=== PATIENT | female | born 1985 | race Caucasian/White ===

== ENCOUNTER 2017-09-24 01:53 | Emergency (ER) | payer OTHER, MEDICAID ==
[2017-09-24 03:23] LABS: AUTOMATED NEUTROPHIL # 7.3 TH/MM3 (1.8-7.7); BASOPHIL # 0.1 TH/MM3 (0-0.2); BASOPHIL % 0.6 % (0.0-2.0); EOSINOPHIL # 0.3 TH/MM3 (0-0.4); EOSINOPHIL % 2.9 % (0.0-4.0); HEMO FLAGS DIFF FINAL; HEMOGLOBIN 12.8 GM/DL (11.6-15.3); LYMPH % 22.3 % (9.0-44.0); LYMPHOCYTE # 2.5 TH/MM3 (1.0-4.8); MEAN CELL VOLUME 85.9 FL (80.0-100.0); MEAN CORPUSCULAR HEMOGLOBIN 28.9 PG (27.0-34.0); MEAN CORPUSCULAR HGB CONC 33.6 % (32.0-36.0); MEAN PLATELET VOLUME 8.5 FL (7.0-11.0); MONO % 9.5 % (0.0-8.0); MONOCYTE # 1.1 TH/MM3 (0-0.9); NEUT % 64.7 % (16.0-70.0); PLATELET COUNT 273 TH/MM3 (150-450); RED BLOOD COUNT 4.42 MIL/MM3 (4.00-5.30); RED CELL DISTRIBUTION WIDTH 13.8 % (11.6-17.2); WHITE BLOOD COUNT 11.3 TH/MM3 (4.0-11.0)
[2017-09-24 03:42] LABS: ALBUMIN 3.7 GM/DL (3.4-5.0); ALCOHOL 61 MG/DL (0-5); ALT (GPT) 52 U/L (10-53); ANION GAP 8 MEQ/L (5-15); AST (GOT) 93 U/L (15-37); BICARBONATE 27.3 MEQ/L (21.0-32.0); BLOOD UREA NITROGEN 14 MG/DL (7-18); CALCIUM 7.8 MG/DL (8.5-10.1); CHLORIDE 109 MEQ/L (98-107); CREATININE 0.59 MG/DL (0.50-1.00); GLOMERULAR FILTRATION RATE 120 ML/MIN (>89); GLUCOSE,RANDOM 82 MG/DL (74-106); POTASSIUM 3.6 MEQ/L (3.5-5.1); SODIUM (NA) 144 MEQ/L (136-145)
[2017-09-24 03:44] LABS: ALKALINE PHOSPHATASE 75 U/L (45-117); TOTAL BILIRUBIN ADULT 0.5 MG/DL (0.2-1.0); TOTAL PROTEIN 6.6 GM/DL (6.4-8.2)
[2017-09-24 04:48] LABS: AMORPHOUS SEDIMENT, URINE RARE; BACTERIA, URINE OCC /hpf; BILIRUBIN, URINE NEG (NEG); BLOOD, URINE LARGE (NEG); COMMENT (UR) CULTURE INDICATED; CULTURE IF INDICATED CULTURE INDICATED; GLUCOSE,URINE NEG (NEG); KETONE, URINE 10 mg/dL (NEG); MUCUS URINE FEW /lpf (OCC); NITRITE,URINE NEG (NEG); SQUAMOUS EPITHELIAL CELL URINE 1 /hpf (0-5); URINE LEUKOCYTE ESTERASE TRACE (NEG)
[2017-09-24 04:49] LABS: URINE COLOR LIGHT-RED (YELLW/STRAW)
[2017-09-24 04:55] LABS: AMPHETAMINE, URINE POS (NEG); BARBITURATES, URINE NEG (NEG); BENZODIAZEPINE,URINE POS (NEG); CANNABINOIDS, URINE POS (NEG); COCAINE, URINE NEG (NEG)
== END 2017-09-24 05:20 | disposition home or self-care (01) ==
LOC: NEPD 01:53
DX: F19.10 Other psychoactive substance abuse, uncomplicated (principal); N30.01 Acute cystitis with hematuria; F10.129 Alcohol abuse with intoxication, unspecified; F41.9 Anxiety disorder, unspecified; F17.290 Nicotine dependence, other tobacco product, uncomplicated
CPT/HCPCS: 80053; 80307; 81001; 84703; 85025; 87086; 99283

== ENCOUNTER 2017-11-07 03:05 | Emergency (ER) | payer SELFPAY ==
[~2017-11-07] VITALS: Ht 170.2 cm; Wt 62.0 kg
[~2017-11-07 03:05] MED LIST: CEPH-460 PO; CLON.5 PO
[2017-11-07 03:24] VITALS: BP 123/88; PULSE 88; RESP 18; TEMP 97.8; O2SAT 100
[2017-11-07] MEDS ORDERED: MAPA500T13 PO (03:26)
[2017-11-07] MEDS ORDERED: CYCL10TA PO (04:03)
[2017-11-07] MEDS ORDERED: DICL75TA PO (04:03)
--- NOTE | 2017-11-07 04:11 | PD ---
HPI Chief Complaint: Back/ Neck Pain or Injury Time Seen by Provider: 03:58 Travel History International Travel<30 days: No Contact w/Intl Traveler<30days: No Traveled to known affect area: No History of Present Illness HPI 32-year-old white female presents emergency department with complaints of lower back pain this evening. She states that she was lifting a computer bag earlier this evening when she developed right lower back pain. She states the pain is moderate and radiates down her right buttocks into her right leg. Worse when she bends and moves. Some relief and remaining still. She denies any direct trauma. She denies any nausea vomiting. No abdominal pain or diarrhea. No urinary symptoms. PFSH Past Medical History Narrative Medical Scoliosis, back pain, substance abuse, Anxiety Anxiety: Yes Diminished Hearing: No Tetanus Vaccination: Unknown ?: Unknown LMP: 10/24/17 : 2 Para: 1 : 1 Past Surgical History Surgical History: No Previous Surgery Social History Alcohol Use: Yes (OCCASIONALLY) Tobacco Use: Yes Substance Use: Yes Allergies-Medications (Allergen,Severity, Reaction): Coded Allergies: No Known Allergies (Verified Adverse Reaction, Unknown, 11/07/17) Reported Meds & Prescriptions Reported Meds & Active Scripts Active Flexeril (Cyclobenzaprine HCl) 10 Mg Tab 10 Mg PO TID Diclofenac Sodium DR (Diclofenac Sodium) 75 Mg Tabdr 75 Mg PO BID Reported Mapap Extra Strength (Acetaminophen) 500 Mg Tab 500 Mg PO Q4-6H PRN Review of Systems Except as stated in HPI: all other systems reviewed are Neg Physical Exam Narrative GENERAL: This is a well-nourished, well-developed patient, in no apparent distress. SKIN: No rashes, ecchymoses or lesions. Warm and dry. HEAD: Atraumatic. Normocephalic. EYES: PERRL, EOMI, no discharge or injection. No scleral icterus. EARS: Clear NOSE: Nasal turbinates appear normal. THROAT: Mucosa pink and moist. Airway patent. NECK: Trachea midline. supple, moves head freely. LUNGS: Clear to auscultation. CV: Regular in rhythm. ABDOMEN: Soft nontender. No guarding or rebound. EXT: No clubbing cyanosis or edema. Back: No central bony tenderness to palpation of the dorsal lumbar spine. Patient has right lower lumbar tenderness. She complains of pain into the right buttocks. Positive straight leg raise on the right. Deep tendon reflexes are 3+ bilaterally. She has intact sensation with good distal pulses. No saddle anesthesia. Data Data Last Documented VS Vital Signs Date Time Temp Pulse Resp B/P (MAP) Pulse Ox O2 Delivery O2 Flow Rate FiO2 11/07/17 03:24 97.8 88 18 123/88 (100) 100 Room Air Orders Orders Ketorolac Inj (Toradol Inj) (11/07/17 04:15) Orphenadrine Inj (Norflex Inj) (11/07/17 04:15) Ed Discharge Order (11/07/17 04:06) [facility] Medical Decision Making Medical Screen Exam Complete: Yes Emergency Medical Condition: Yes Medical Record Reviewed: Yes Differential Diagnosis MDM: High Differential diagnoses: AAA,Fracture, sprain, strain, HNP, nerve or vascular injury, epidural abscess, pilonidal cyst, pyelonephritis, UTI, nephrolithiasis, ureterolithiasis Narrative Course Without history of direct trauma x-rays are indicated. Patient has had a history of back problems in the past. She is given Toradol 60 mg IM and Norflex 60 mg IM. This is a patient who had seen in the past for substance abuse. She will be given NSAIDs and muscle relaxer. No opiates. Diagnosis Primary Impression: Acute lower back pain with right sciatica Patient Instructions: General Instructions Departure Forms: Tests/Procedures, Work Release Special Instructions: No work times no work 3 days. Additional Instructions: Rest. Ice for the next 3 days followed by heat . Flexeril and Voltaren. Follow-up with a primary care doctor in one week. Return to the ER for emergencies. Med/Other Pt SpecificInfo: Prescription(s) given Scripts Cyclobenzaprine (Flexeril) 10 Mg Tab 10 MG PO TID for Muscle Spasm, #30 TAB 0 Refills Prov: Ibrahima Cohen MD 11/07/[address] (Diclofenac Sodium DR) 75 Mg Tabdr 75 MG PO BID, #20 TAB 0 Refills Prov: Ibrahima Cohen MD 11/07/17 Disposition: 01 DISCHARGE HOME Condition: Stable CarlaAlberto RamirezJosé Miguel LANGE Nov 07, 2017 04:11
[2017-11-07] MEDS ORDERED: ORPHENADRINE INJ 60 MG/2 ML AMP IM ONE (04:15)
[2017-11-07] MEDS ORDERED: KETOROLAC TROMETHAMINE 60 MG/2 ML (IM) VIAL IM ONE (04:15)
== END 2017-11-07 05:00 | disposition home or self-care (01) ==
LOC: NEPD 03:05
DX: M54.41 Lumbago with sciatica, right side (principal); M41.9 Scoliosis, unspecified; F41.9 Anxiety disorder, unspecified; X50.0XXA Overexertion from strenuous movement or load, initial encounter; Z72.0 Tobacco use
CPT/HCPCS: 96372; 99283; J1885; J2360